=== PATIENT | female | born 1985 | race Hispanic/Latino ===

== ENCOUNTER 2021-07-03 10:10 | Emergency (ER) | payer MEDICAID, OTHER ==
[~2021-07-03] VITALS: Ht 124.5 cm; Wt 68.0 kg
[2021-07-03 13:16] VITALS: BP 170/96
== END 2021-07-03 13:16 | disposition home or self-care (01) ==
LOC: EDH 10:10
DX: S00.83XA Contusion of other part of head, initial encounter (principal); I10 Essential (primary) hypertension; W01.0XXA Fall on same level from slipping, tripping and stumbling without subsequent striking against object, initial encounter; Y93.89 Activity, other specified; Y92.89 Other specified places as the place of occurrence of the external cause; Y99.8 Other external cause status
CPT/HCPCS: 70486; 81025